=== PATIENT | female | born 1940 | race Caucasian/White ===

== ENCOUNTER 2023-02-20 08:20 | Emergency (ER) | payer OTHER, BC ==
[~2023-02-20] VITALS: Ht 162.6 cm; Wt 72.6 kg
[2023-02-20] MEDS ORDERED: LANTUS SOL100 UNIT/1 (08:30)
[2023-02-20] MEDS ORDERED: SYNTHROID50 MCG (08:30)
[2023-02-20] MEDS ORDERED: TOPROL XL25 M1 (08:30)
[2023-02-20] MEDS ORDERED: ADULT LOW DOSE81 M1 (08:30)
[2023-02-20] MEDS ORDERED: PLAVIX75 MG (08:31)
[2023-02-20] MEDS ORDERED: IMURAN50 MG (08:31)
[2023-02-20] MEDS ORDERED: VITAMIN B-121000 MCG (08:31)
[2023-02-20] MEDS ORDERED: PRAVASTATIN SOD20 MG (08:31)
[2023-02-20] MEDS ORDERED: LASIX20 MG (08:31)
[2023-02-20] MEDS ORDERED: ISOSORBIDE DINI30 MG (08:32)
[2023-02-20] MEDS ORDERED: PROTONIX40 M1 (08:32)
== END 2023-02-20 10:17 | disposition home or self-care (01) ==
LOC: ER 08:20
DX: S42.302A Unspecified fracture of shaft of humerus, left arm, initial encounter for closed fracture (principal); W19.XXXA Unspecified fall, initial encounter; Y93.9 Activity, unspecified; Y92.814 Boat as the place of occurrence of the external cause; Y99.9 Unspecified external cause status